=== PATIENT | female | born 1950 | race Asian ===

== ENCOUNTER 2016-08-22 08:57 | Day surgery (SDC) | payer MEDICARE, OTHER ==
[2016-08-22] VITALS (13 sets, daily range): BP systolic 90–150; BP diastolic 53–86; PULSE 57–102; TEMP 98.1
[~2016-08-22] VITALS: Ht 165.1 cm; Wt 95.5 kg
[~2016-08-22 08:57] MED LIST: ANTIVERT 25MG25 MG PO; ASPIRIN 32325 MG/TAB; CIPRO 500MG TA500 MG PO; FLAGYL500 MG PO; GLUCOPHAGE1000 MG PO; NOVOLOG 100U100 U/M1 SQ; PRINIVIL2.5 MG; TOPROL XL 25MG25 MG; VITAMIN D31000 IU; ZOFRAN 4MG T4 MG/TAB PO
[2016-08-22 10:03] LABS: INR 1.5 (0.8-3.0); PROTHROMBIN TIME 16.3 SECONDS (9.7-12.8)
[2016-08-22 10:04] LABS: HEMOGLOBIN 12.8 g/dl (12.5-16.0); MEAN CELL VOLUME 93 fl (80.0-100.0); MEAN CORPUSCULAR HEMOGLOBIN 31 pg (27.0-31.0); MEAN CORPUSCULAR HGB CONC 33 g/dl (33.0-37.0); MEAN PLATELET VOLUME 10.4 fl (7.4-10.4); PLATELET COUNT 250 K/mm3 (130-400); RED BLOOD COUNT 4.19 M/mm3 (4.10-5.30); REDCELL DISTRIBUTION WIDTH-CV 13.4 % (11.5-14.5); WHITE BLOOD COUNT 8.9 K/mm3 (4.8-10.8)
[2016-08-22] MEDS ORDERED: ASPIRIN 81M81 MG/TA2 PO (10:06)
[2016-08-22] MEDS ORDERED: PRINIVIL5 MG PO (10:07)
[2016-08-22] MEDS ORDERED: CALCIUM CITRATE1 TA1 PO (10:09)
[2016-08-22] MEDS ORDERED: XARELTO20 MG PO (10:09)
[2016-08-22] MEDS ORDERED: RANEXA 500MG T500 MG PO (10:11)
[2016-08-22] MEDS ORDERED: COREG12.5 MG PO (10:11)
[2016-08-22] MEDS ORDERED: LEVEMIR100 U/ML SQ ×2 (10:12)
[2016-08-22] MEDS ORDERED: LASIX 20MG TABL20 MG PO (10:13)
[2016-08-22] MEDS ORDERED: KLOR-CON 1010 MEQ (10:13)
[2016-08-22 10:14] LABS: CALCIUM 9.8 mg/dL (8.4-10.2); CREATININE, serum 1.02 mg/dL (0.52-1.25); POTASSIUM 4.4 mmol/L (3.4-5.0)
[2016-08-22] MEDS ORDERED: TANZEUM SQ (10:16)
[2016-08-22] MEDS ORDERED: MULTAQ400 MG PO (11:14)
[2016-08-22 20:02] LABS: THYROID STIMULATING HORMONE 2.99 uIU/mL (0.465-4.680)
== END 2016-08-22 12:53 | disposition home or self-care (01) ==
LOC: EUO 08:57 → COL.CAR 09:00 → EUO 12:53
PROVIDERS: Internal Medicine Cardiovascular Disease
DX: I48.0 Paroxysmal atrial fibrillation (principal); I25.10 Atherosclerotic heart disease of native coronary artery without angina pectoris; E11.9 Type 2 diabetes mellitus without complications; I42.9 Cardiomyopathy, unspecified; R55 Syncope and collapse; E78.5 Hyperlipidemia, unspecified; I10 Essential (primary) hypertension; Z79.01 Long term (current) use of anticoagulants; Z79.899 Other long term (current) drug therapy; Z79.82 Long term (current) use of aspirin; Z79.4 Long term (current) use of insulin; Z79.84 Long term (current) use of oral hypoglycemic drugs
CPT/HCPCS: J2250; J3010; J7030

== ENCOUNTER 2016-10-18 11:09 | Outpatient (CLI) | payer MEDICARE, OTHER ==
[~2016-10-18] VITALS: Ht 167.6 cm; Wt 93.6 kg
[~2016-10-18 11:09] MED LIST changes: +ASPIRIN 81M81 MG/TA2 PO; +CALCIUM CITRATE1 TA1 PO; +COREG12.5 MG PO; +KLOR-CON 1010 MEQ; +LASIX 20MG TABL20 MG PO; +LEVEMIR100 U/ML SQ; +MULTAQ400 MG PO; +PRINIVIL5 MG PO; +RANEXA 500MG T500 MG PO; +TANZEUM SQ; +XARELTO20 MG PO
[2016-10-18] MEDS ORDERED: SYNTHROID0.05 MG/TA PO (12:13)
[2016-10-18] MEDS ORDERED: NOVOLOG 100U100 U/M1 SQ ×2 (12:14→12:15)
[2016-10-18] MEDS ORDERED: LEVEMIR100 U/ML SQ (12:14)
[2016-10-18] MEDS ORDERED: TANZEUM SQ (12:17)
[2016-10-18 13:07] VITALS: BP 158/83; PULSE 53; TEMP 97.9
[2016-10-18 15:07] VITALS: BP 141/79; PULSE 79; TEMP 97.6
[2016-10-18] MEDS ORDERED: CEPHALEXIN500 M1 PO (15:12)
== END 2016-10-18 15:58 | disposition home or self-care (01) ==
LOC: COL.CAR 11:09
DX: I48.91 Unspecified atrial fibrillation (principal)
CPT/HCPCS: C1764

== ENCOUNTER 2017-01-30 06:50 | Inpatient (IN) | payer MEDICARE, OTHER ==
[~2017-01-30] VITALS: Ht 167.6 cm; Wt 92.9 kg
[~2017-01-30 06:50] MED LIST changes: +CEPHALEXIN500 M1 PO; +SYNTHROID0.05 MG/TA PO
[2017-02-21] VITALS (683 sets, daily range): BP systolic 134–153; BP diastolic 76–82; PULSE 59–77; TEMP 97.1–97.7; O2SAT 87–98
[2017-02-21] MEDS ORDERED: NORVASC 5MG5 MG/TAB PO (08:49)
[2017-02-21] MEDS ORDERED: ZETIA 10MG TAB10 MG PO (08:49)
[2017-02-21] MEDS ORDERED: LEVEMIR100 U/ML SQ (08:50)
[2017-02-21 08:52] LABS: CALCIUM 10.2 mg/dL (8.4-10.2); CREATININE, serum 0.91 mg/dL (0.52-1.25); MAGNESIUM 1.5 mg/dL (1.6-2.3); POTASSIUM 3.8 mmol/L (3.4-5.0)
[2017-02-22] VITALS (301 sets, daily range): BP systolic 110–137; BP diastolic 60–81; PULSE 57–77; TEMP 97.3–98.2; O2SAT 86–98
[2017-02-22 05:56] LABS: ADJUSTED CALCIUM 9.7 mg/dL (8.4-10.2); BILIRUBIN,TOTAL 0.5 mg/dL (0.0-1.0); CALCIUM 9.7 mg/dL (8.4-10.2); CREATININE, serum 0.89 mg/dL (0.52-1.25); MAGNESIUM 1.7 mg/dL (1.6-2.3); POTASSIUM 3.9 mmol/L (3.4-5.0); TOTAL PROTEIN 7.9 gm/dL (6.4-8.2)
[2017-02-23 03:26] VITALS: BP 151/63; PULSE 60; TEMP 97.9
[2017-02-23 07:42] VITALS: BP 127/74; PULSE 69; TEMP 97.8
[2017-02-23 07:44] LABS: ADJUSTED CALCIUM 9.8 mg/dL (8.4-10.2); BILIRUBIN,TOTAL 0.4 mg/dL (0.0-1.0); CALCIUM 9.8 mg/dL (8.4-10.2); CREATININE, serum 0.91 mg/dL (0.52-1.25); POTASSIUM 4.1 mmol/L (3.4-5.0); TOTAL PROTEIN 7.7 gm/dL (6.4-8.2)
[2017-02-23] MEDS ORDERED: TIKOSYN0.25 MG PO (12:06)
[2017-02-23] MEDS ORDERED: COZAAR100 MG PO (12:06)
[2017-02-23 12:31] VITALS: BP 107/59; PULSE 69; TEMP 97.8
[2017-02-23] MEDS ORDERED: MAG-OX 400400 MG/TAB PO (12:49)
== END 2017-02-23 14:14 | disposition home or self-care (01) | DRG 310 ==
LOC: MEDICAL 02-12 06:49 → ICU 02-21 07:38 → MEDICAL 02-22 11:17
PROVIDERS: Internal Medicine Cardiovascular Disease
DX: I48.0 Paroxysmal atrial fibrillation (principal); I25.10 Atherosclerotic heart disease of native coronary artery without angina pectoris; I10 Essential (primary) hypertension; E11.9 Type 2 diabetes mellitus without complications; M19.012 Primary osteoarthritis, left shoulder; Z79.4 Long term (current) use of insulin; M16.12 Unilateral primary osteoarthritis, left hip; I25.2 Old myocardial infarction
CPT/HCPCS: J1815; J3475